=== PATIENT | female | born 1965 | race Caucasian/White ===

== ENCOUNTER 2017-02-08 07:19 | Day surgery (SDC) | payer BC ==
[2017-02-05 13:09] VITALS: BMI 23.8
[2017-02-08] MEDS ORDERED: ROCURONIUM BROMIDE 50 MG/5 ML VIAL ONE (08:31)
[2017-02-08] MEDS ORDERED: SUCCINYLCHOLINE CHLORIDE 200 MG/10 ML VIAL ONE (08:31)
[2017-02-08] MEDS ORDERED: MIDAZOLAM HCL 2 MG/2 ML SINGLE DOSE VIAL ONE (08:31)
[2017-02-08] MEDS ORDERED: PROPOFOL 20 ML ONE (08:31)
[2017-02-08] MEDS ORDERED: LIDOCAINE HCL/PF 2% SDV 5ML VIAL ONE (08:32)
[2017-02-08] MEDS ORDERED: DEXAMETHASONE SOD PHOSPHATE 4 MG/1 ML VIAL ONE (08:33)
[2017-02-08] MEDS ORDERED: ONDANSETRON 4 MG/2 ML VIAL ONE (08:33)
[2017-02-08] MEDS ORDERED: ceFAZolin SODIUM 1 GM VIAL ONE (10:42)
[2017-02-08] MEDS ORDERED: BUPIVACAINE HCL/PF 0.5% (5MG/ML) 10 ML VIAL IJ ONE (11:36)
[2017-02-08] MEDS ORDERED: ONDANSETRON 4 MG/2 ML VIAL IVPUSH PRN (11:53)
--- NOTE | 2017-02-08 11:53 | OP ---
Operative Note - Note: Operative Date: 02/08/17 Pre-Operative Diagnosis: Multinodular goiter Operation: Total thyroidectomy Implants: none Post-Operative Diagnosis: Same as Pre-op Surgeon: Emily Mckeon [employer] Supervisor: Lilia Healy Anesthesiologist/STAFF AUDITOR: Can Schreiber Anesthesia: General Specimens Removed: total thyroid Estimated Blood Loss (mls): 20 Drains & Tubes with Location: none Operative Report Dictated: Yes
--- NOTE | 2017-02-08 11:54 | HP ---
History & Physical Update - History History: No Change - Physical Physical: No Change - Assessment Assessment: No Change - Plan Plan: No Change
[2017-02-08] MEDS ORDERED: OXYCODONE/APAP 5/325MG COMBO TABLET PO PRN ×4 (11:55→12:03)
[2017-02-08] MEDS ORDERED: HYDROmorphone HCL CARPU-JECT 1 MG/1 ML DISP.SYRIN IVPB PRN (12:01)
[2017-02-08] MEDS: LACTATED RINGERS SOLUTION 1,000 ML IV SCH (13:53)
[2017-02-08 19:03] LABS: ALBUMIN 4.2 g/dl (3.5-5.0); ALK PHOS 61 U/L (32-92); ANION GAP 9 (8-16); BILIRUBIN,TOTAL 0.7 mg/dl (0.2-1.0); CALCIUM 8.9 mg/dl (8.4-10.2); CO2 26 mmol/L (22-28); CREATININE 0.7 mg/dl (0.6-1.3); GLUCOSE,RANDOM 161 mg/dl (74-106); SGOT/AST 38 U/L (10-42); SGPT/ALT 40 U/L (10-40); TOT PROT 7.3 g/dl (6.4-8.3)
[2017-02-09 06:33] VITALS: BP 97/62; PULSE 64; TEMP 98.3
[2017-02-09] MEDS ORDERED: LEVOTHYROXINE NA 88 MCG TABLET (FP) PO SCH (07:00)
[2017-02-09 09:05] LABS: BASOPHIL 0.5 % (0-2.0); EOSINOPHIL 0.3 % (0-4.5); MCH 31.6 pg (25.7-33.7); MCHC 34.3 g/dl (32.0-36.0); MEAN PLT VOLUME 9.3 fl (7.5-11.1); NEUTROPHILS 76.7 % (42.8-82.8); PLATELET COUNT 302 K/MM3 (134-434); RDW 12.6 % (11.6-15.6); WHITE BLOOD COUNT 9.9 K/mm3 (4.0-10.8)
[2017-02-09 09:18] LABS: ALBUMIN 3.9 g/dl (3.5-5.0); ALK PHOS 55 U/L (32-92); ANION GAP 13 (8-16); CALCIUM 7.7 mg/dl (8.4-10.2); CO2 24 mmol/L (22-28); CREATININE 0.6 mg/dl (0.6-1.3); GLUCOSE,RANDOM 87 mg/dl (74-106); SGOT/AST 27 U/L (10-42); SGPT/ALT 34 U/L (10-40); TOT PROT 6.7 g/dl (6.4-8.3)
--- NOTE | 2017-02-09 09:54 | PN ---
Progress Note (short form) - Note Progress Note: ANESTHESIOLOGY POST-OP CHECK 52F s/p total thyroidectomy under general anesthesia POD #1. Denies pain, N/V, tolerating PO, ambulating, voiding. Vital Signs Temperature 98.3 F 02/09/17 06:32 Pulse Rate 64 02/09/17 06:32 Respiratory Rate 18 02/09/17 06:32 Blood Pressure 97/62 02/09/17 06:32 O2 Sat by Pulse Oximetry (%) 96 02/09/17 06:32 Active Medications Fentanyl (Sublimaze Injection -) 25 mcg IVPUSH [id number] PRN PRN Reason: PAIN Stop: 02/11/17 11:54 Hydromorphone HCl (Dilaudid Injection -) 1 mg IVPB Q4H PRN PRN Reason: PAIN LEVEL 6-10 Last Admin: 02/09/17 05:41 Dose: 1 mg Lactated Ringer's (Lactated Ringers Solution) 1,000 mls @ 100 mls/hr IV ASDIR [facility] Last Admin: 02/08/17 13:53 Dose: Not Given Levothyroxine Sodium (Synthroid -) 88 mcg PO DAILY@0700 [facility] Last Admin: 02/09/17 06:24 Dose: 88 mcg Oxycodone/Acetaminophen (Percocet 5/325 -) 2 combo PO Q6H PRN PRN Reason: PAIN LEVEL 6-10 Oxycodone/Acetaminophen (Percocet 5/325 -) 1 combo PO Q6H PRN PRN Reason: PAIN LEVEL 1-5 Last Admin: 02/08/17 18:17 Dose: 1 combo GEn: Awake, alert No apparent anesthesia complications. Pain well controlled. Continue management as per primary team
--- NOTE | 2017-02-09 10:19 | PN ---
Progress Note (short form) - Note Progress Note: One day s/p total thyroidectomy. Sister translating. Reports pain at surgical site that is well controlled with pain medication. Tolerating PO intake. Denies SP/SOB, N/V/D, and numbness/tingling. General: calm and cooperative, NAD, A&O. Neck: supple, dressing dry and intact, no hematoma or edema Lungs: CTA Heart: RRR, no MRG. Abdomen: soft, nontender One day s/p total thyroidectomy. Discharge home today. Levothyroxine ordered. Calcium did drop from 8.9 to 7.7. Asymptomatic. Will order Calcium and Vitamin D. Resume normal activity. Regular diet as tolerated. Percocet sent to pharmacy. Keep dressing dry and intact x2 days. Then recover daily.
[2017-02-09] MEDS ORDERED: CALCIUM 500MG/VIT-D 200 UNITS COMBO TABLET (FP) PO SCH (10:30)
--- NOTE | 2017-02-09 11:02 | OP ---
DATE OF OPERATION: 02/08/2017 PREOPERATIVE DIAGNOSIS: Nodular goiter. POSTOPERATIVE DIAGNOSIS: Nodular goiter. OPERATIVE PROCEDURE: Total thyroidectomy. SURGEON: Emily Mckeon MD WET MIXER: Lilia ANESTHESIA: General endotracheal intubation. INDICATIONS: The patient was admitted with a nodular goiter in the right lower lobe, and the patient had multiple biopsies, which were not successful after the patient was brought into the hospital for thyroidectomy. DESCRIPTION OF PROCEDURE: The neck was prepped and draped in the usual manner, and incision was made in the lower part of the skin crease to identify the platysmal muscle, which was open. The midline was opened to identify the strap muscle, which was retracted laterally. The thyroid gland was dissected initially the upper pole. The superior thyroid gland was taken off right at the gland level. The middle thyroid was taken. The medial rotation of the gland was done. Nerve was identified and preserved, which is a recurrent laryngeal nerve, and the inferior thyroid vessels were taken after that. The thyroid gland was then removed from the trachea using bipolar cautery device. After adequate hemostasis, the midline was closed. Subcutaneous was closed, and subcuticular was closed. The patient went to the recovery room. Marija [id number]
[2017-02-09] MEDS: LACTATED RINGERS SOLUTION 1,000 ML IV SCH (12:37)
[2017-02-09] MEDS ORDERED: CALCIUM GLUCONATE 10% - 1,000 MG/10 ML VIAL IVPB ONE (14:45)
--- NOTE | 2017-02-09 17:04 | PATH ---
Surgical Pathology Report Patient Name: SIMRAN KIDD [facility]. Rec. #: [id number] /Age/Gender: 1965 (Age: 52) / F Account: [id number] Location: [facility] MED-SURG Taken: 02/08/2017 Received: 02/08/2017 Reported: 02/09/2017 Physicians: Emily Mckeon M.D. 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 CARCINOMA IS 0.1 CM FROM THE INKED MARGIN OF EXCISION, AND ALL MARGINS OF EXCISION ARE FREE OF CARCINOMA. NO EXTRATHYROIDAL EXTENSION IDENTIFIED. NO LYMPH VASCULAR INVASION IDENTIFIED. NO CAPSULE IS PRESENT. RIGHT LOBE OF THYROID CONTAINS A BENIGN CALCIFIED NODULE MOST CONSISTENT WITH A BENIGN ADENOMATOUS NODULE WITH DEGENERATIVE CHANGE. ONE BENIGN LYMPH NODE PRESENT (0/1). ONE PARATHYROID GLAND PRESENT. Comment: This case was discussed with Dr. Mckeon on February 09, 2017. Comments Thyroid carcinoma: Surgical Pathology Cancer Case Summary (Checklist) Based on AJCC/UICC TNM, 7th edition Procedure _X__ Total thyroidectomy Specimen Integrity _X__Intact Specimen Size Right lobe: 3.8 X 1.8 X 0.9 cm Left lobe: 3.0 X 1.6 X 0.5 cm Isthmus +/- pyramidal lobe: 1.0 X 0.8 X 0.4 cm Tumor Focality _X__ Unifocal Dominant Tumor Tumor Laterality _X__ Left lobe Tumor Size Greatest dimension: 0.5 cm Histologic Type _X__ Papillary carcinoma Variant, specify: _X__ Classical (usual) Architecture: _X__ Classical (papillary) Cytomorphology: _X__ Classical Histologic Grade _X__ G1: Well differentiated Margins _X__ Margins uninvolved by carcinoma Tumor Capsule _X__ None Tumor Capsular Invasion (select all that apply) _X__ Cannot be assessed Lymph-Vascular Invasion _X__ Not identified Extrathyroidal Extension _X__ Not identified Pathologic Staging (pTNM) : pT1a pN0 pMX Electronically Signed Vahid Ziegler M.D. Gross Description Received in formalin labeled "total thyroid," is a 7 g total thyroidectomy specimen. The right lobe measures 3.8 x 1.8 x 0.9 cm, the isthmus measures 1.0 x 0.8 x 0.4 cm, and the left lobe measures 3.0 x 1.6 x 0.5 cm. The outer capsule is red-brown and shaggy. The right lobe is inked red, the isthmus is inked green, and the left lobe is inked black. Sectioning reveals a 0.3 x 0.3 x 0.2 cm pale pereira nodule in the upper pole of the left lobe. There is an additional 0.3 x 0.3 x 0.2 cm pale pereira nodule in the lower pole of the left lobe. Additionally, there is a 1.5 x 1.0 x 0.7 cm calcified nodule in the superior pole of the right lobe. The remaining thyroid parenchyma is red-brown and unremarkable. The specimen is entirely submitted in 11 cassettes as follows: 1-4-left lobe sequentially from superior to inferior (superior nodule in cassette 1, inferior nodule in cassette 3); 5-6-isthmus from left to right; 7-11-right lobe sequentially from superior to inferior (calcified nodule in cassettes 7-8). 02/08/201702/08/2017
== END 2017-02-09 19:00 | disposition home or self-care (01) ==
LOC: FASU 07:19 → FM/S 13:50 → FASU 02-09 19:00
PROVIDERS: ATTEND Surgery Vascular Surgery
PROC: 0GTK0ZZ Resection of Thyroid Gland, Open Approach (ICD-10-PCS; principal; 2017-02-08 10:28)
DX: C73 Malignant neoplasm of thyroid gland (principal)
CPT/HCPCS: 36415; 80053; 82310; 85025; 88307-TC; 94760